=== PATIENT | female | born 1950 | race Caucasian/White ===

== ENCOUNTER 2021-06-30 10:30 | Emergency (ER) | payer MEDICARE, SELFPAY | END 2021-06-30 11:12 | disposition left against medical advice (07) | PROVIDERS: Emergency Provider Emergency Medicine ==

== ENCOUNTER 2022-09-09 12:18 | Emergency (ER) | payer MEDICARE, SELFPAY ==
[2022-09-09 12:35] VITALS: BP 156/89; PULSE 70; RESP 16; TEMP 36.9; O2SAT 98; BMI 16.1
--- NOTE | 2022-09-09 12:39 | DI.RAD.S_ITS ---
PROCEDURE: XR KNEE RT 3V INDICATIONS: Fall, knee injury TECHNIQUE: 4 views of the knee were acquired. COMPARISON: None. FINDINGS: Bones: Markedly comminuted fracture of the distal femur involving the diametaphyseal region likely extending to the articular surface with impaction and overriding and angulation and displacement. Soft tissues: Positive joint effusion. No suspicious soft tissue calcifications. IMPRESSION: Markedly comminuted fracture of the distal femur, likely extending to the articular surface as described above. Dictated by: Gallo Castillo M.D. on 09/09/2022 at 14:27 Approved by: Gallo Castillo M.D. on 09/09/2022 at 14:39
--- NOTE | 2022-09-09 12:43 | DI.CT.S_ITS ---
PROCEDURE: CT CERVICAL SPINE WO CON INDICATIONS: fall last night, head injury TECHNIQUE: Noncontrast 3 mm thick sections acquired from the skull base to the T4 level. Sagittal and coronal reformats were then constructed. For radiation dose reduction, the following was used: automated exposure control, adjustment of mA and/or kV according to patient size. COMPARISON: None. FINDINGS: Image quality: Excellent. Bones: No fractures or dislocations. Loss of normal cervical lordosis. Degenerative disc disease, [id number] at C3-C4, C4-C5 and C5-C6, causing moderate central canal stenosis. Moderate bilateral facet arthropathy, most pronounced at C5-C6 on the right. Visualized superior ribs are intact. Soft tissues: Prevertebral soft tissues are normal in thickness. No paravertebral hematomas. No apical pneumothoraces. IMPRESSION: 1. No cervical spine fractures. 2. Degenerative changes as described. Dictated by: Ze Mccollum M.D. on 09/09/2022 at 13:25 Approved by: Ze Mccollum M.D. on 09/09/2022 at 13:27
--- NOTE | 2022-09-09 12:43 | DI.CT.S_ITS ---
PROCEDURE: CT HEAD/BRAIN WO CON INDICATIONS: fall, head injury TECHNIQUE: Noncontrast 4.5 mm thick angled axial sections acquired from the foramen magnum to the vertex, with coronal and sagittal reformats. For radiation dose reduction, the following was used: automated exposure control, adjustment of mA and/or kV according to patient size. COMPARISON: None. FINDINGS: Image quality: Suboptimal due to motion artifacts. CSF spaces: Basal cisterns are patent. No extra-axial fluid collections. The ventricles are symmetric in size and shape. Brain: No intracranial bleeds or masses. There is cerebral volume loss for age, with resultant ventricular and sulcal prominence. There are periventricular and deep white matter chronic small vessel ischemic changes. There is intracranial internal carotid artery atherosclerosis. Skull and face: Calvarium and visualized facial bones appear intact, without suspicious lesions. Sinuses: Visualized sinuses and mastoids are clear. IMPRESSION: 1. No acute intracranial abnormalities. 2. Cerebral volume loss and chronic microvascular ischemic changes. Dictated by: Ze Mccollum M.D. on 09/09/2022 at 13:24 Approved by: Ze Mccollum M.D. on 09/09/2022 at 13:24
--- NOTE | 2022-09-09 13:01 | DI.CT.S_ITS ---
PROCEDURE: CT LE RT WO CON INDICATIONS: right leg injury TECHNIQUE: Noncontrast 3 mm axial sections acquired of the left lower extremity, with coronal and sagittal reformats. COMPARISON: None. FINDINGS: Image quality: Excellent. Bones: There is a comminuted, intra-articular fracture of the distal femoral metaphysis with impaction and displacement. Diffuse osteopenia. Soft tissues: Soft tissue edema. Small knee joint effusion. There is a large lipomatous mass in the distal lower leg posterior to the distal tibia measuring 4.1 x 3.5 x 11.3 cm demonstrating foci of calcification. There is a large amount of stool in rectum. IMPRESSION: 1. Comminuted intra-articular fracture of the distal femur. 2. 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 A differential diagnosis is liposarcoma. Recommend nonurgent MRI with and without contrast for further evaluation. Dictated by: Ze Mccollum M.D. on 09/09/2022 at 13:55 Approved by: Ze Mccollum M.D. on 09/09/2022 at 14:02
--- NOTE | 2022-09-09 14:08 | ED_ITS ---
HPI - Fall General Chief Complaint: Fall Stated Complaint: fell/rt knee inj Time Seen by Provider: 09/09/22 12:39 Source: patient and family Mode of arrival: Wheelchair History of Present Illness HPI Narrative: Patient here for right knee pain after ground level fall. at bedside. Patient was trying to answer the door at home. She had 1 ft on the carpet 1 ft on hard floor, her right foot gave out and she landed on her knee. Denies any other injuries. Patient has history of ALS. History of dementia. Denies hitting her head. No loss of consciousness. Related Data Allergies Allergy/AdvReac Type Severity Reaction Status Date / Time No Known Drug Allergies Allergy Verified 09/09/22 16:03 Review of Systems Review of Systems Narrative: GENERAL: negative chills, fatigue, malaise, fever, sweats. HEENT: negative sinus pain, ear pain, sore throat RESPIRATORY: negative dyspnea, cough CARDIOVASCULAR: negative chest pain, palpitations GASTROINTESTINAL: negative nausea, vomiting, abdominal pain : negative dysuria, frequency, hematuria MUSCULOSKELETAL: Positive bony pain SKIN: negative rash, skin lesions NEUROLOGIC: negative weakness, numbness ROS Unobtainable: All systems reviewed & are unremarkable except as noted in HPI and below Patient History Social History Smoking Status: Never smoker Smoking Status: Never smoker Substance Use Type: does not use Exam Narrative Exam Narrative: GENERAL: in no distress, not toxic not dyspneic HEAD: Normocephalic. Nontender face scalp and skull. EYES: Pupils equal round ENT: Mucous membranes moist. NECK: Trachea midline. No midline tenderness or step-off of the cervical spine CARDIOVASCULAR: Regular rate and rhythm RESPIRATORY: Clear to auscultation. Breath sounds equal bilaterally. No wheezes, rales, or rhonchi. GASTROINTESTINAL: Abdomen soft, non-tender EXTREMITIES: Right thigh to toes exposed. Foot is warm soft and pink with strong pedal pulse light touch intact to foot and toes. Strong pedal pulse with brisk cap refills. Nontender ankle. There is edema to the right knee. Very limited range of motion due to pain. Skin is intact. NEURO: AOx3 SKIN: Warm and dry PSYCH: Not anxious, is cooperative Initial Vital Signs Initial Vital Signs: Vital Signs Temperature 98.4 F 09/09/22 12:35 Pulse Rate 70 09/09/22 12:35 Respiratory Rate 16 09/09/22 12:35 Blood Pressure 156/89 H 09/09/22 12:35 Pulse Oximetry 98 09/09/22 12:35 Oxygen Delivery Method Room Air 09/09/22 12:35 Course Orders Ordered: Discontinued Medications Diazepam (Diazepam 10 Mg/2 Ml Syringe) 2 mg IV NOW ONE Stop: 09/09/22 16:15 Last Admin: 09/09/22 16:25 Dose: 2 mg Documented By: NAEEM Hydromorphone HCl (Hydromorphone 1 Mg Inj) 1 mg IV NOW ONE Stop: 09/09/22 14:13 Last Admin: 09/09/22 14:33 Dose: 1 mg Documented By: NEAEM Ondansetron HCl (Ondansetron 4 Mg/2 Ml Inj) 4 mg IV NOW ONE Stop: 09/09/22 14:13 Last Admin: 09/09/22 15:24 Dose: Not Given Documented By: NAEEM Vital Signs Vital signs: Vital Signs - 8 hr 09/09/22 12:35 Temperature 98.4 F Pulse Rate 70 Respiratory Rate 16 Blood Pressure 156/89 H Pulse Oximetry 98 Oxygen Delivery Method Room Air MDM - Fall Lab Data 09/09/22 13:55 09/09/22 13:55 Labs: Lab Results 09/09/22 09/09/22 Range/Units 13:55 13:55 WBC 13.3 H (4.5-11.0) X10^3/uL RBC 4.96 (4.0-5.2) X10^6/uL Hgb 15.9 (12.0-16.0) g/dL Hct 46.5 H (36-46) % MCV 93.7 (80-100) fL MCH 32.0 (26-34) PG MCHC 34.1 (30-36) % RDW 13.9 (11.6-14.8) % Plt Count 299 (150-400) X10^3/uL Neut % (Auto) 83.7 H (50-75) % Lymph % (Auto) 8.7 L (25-40) % [place] % (Auto) 7.0 (3-14) % Eos % (Auto) 0.1 L (2-4) % Baso % (Auto) 0.5 (0-2) % Neut # (Auto) 51112 H (9285-2118) /uL Lymph # (Auto) 1200 (2532-2695) /uL [place] # (Auto) 900 (0-900) /uL Eos # (Auto) 0 (0-450) /uL Baso # (Auto) 100 (0-100) /uL Sodium 133 L (137-145) mmol/L Potassium 4.1 (3.4-5.1) mmol/L Chloride 98 (98-107) mmol/L Carbon Dioxide 27 (22-32) mmol/L BUN 16 (7-17) mg/dL Creatinine 0.34 L (0.52-1.04) mg/dL Estimated GFR > 60 (>60) mL/min BUN/Creatinine Ratio 47.1 H (6-22) Glucose 107 (80-110) mg/dL Calcium 8.9 (8.4-10.2) mg/dL Total Bilirubin 1.2 (0.2-1.3) mg/dL AST 34 (14-36) IU/L ALT 26 (<35) IU/L Alkaline Phosphatase 82 (38-126) U/L Total Protein 7.0 (6.3-8.2) g/dL Albumin 4.2 (3.5-5.0) g/dL Globulin 2.8 (1.7-4.1) g/dL Albumin/Globulin Ratio 1.5 (1.0-2.8) Imaging Data Extremity x-ray #1: Radiologist's Impression: [address] [address] [address] Scan Report Signed Patient: Ruthie Landin MR#: [id number] : 1950 Acct:[id number] Age/Sex: 71 / F Date of Service: 09/09/22 Loc: ED Accession Number: [id number] ?? Procedure: CT LE RT wo con Ordering Provider: Hodan Leone PROCEDURE:? CT LE RT WO CON ? INDICATIONS:? right leg injury ? TECHNIQUE:? Noncontrast 3 mm axial sections acquired of the left lower extremity, with coronal and sagittal reformats. ? ? COMPARISON:? None. ? FINDINGS:? Image quality:? Excellent.? ? Bones:? There is a comminuted, intra-articular fracture of the distal femoral metaphysis with impaction and displacement. Diffuse osteopenia.? ? Soft tissues:? Soft tissue edema.? Small knee joint effusion.? There is a large lipomatous mass in the distal lower leg posterior to the distal tibia measuring 4.1 x 3.5 x 11.3 cm demonstrating foci of calcification.? There is a large amount of stool in rectum. ? IMPRESSION:? ? 1. Comminuted intra-articular fracture of the distal femur. ? 2. Large lipoma the distal lower leg with foci of calcification.? A differential diagnosis is liposarcoma.? Recommend nonurgent MRI with and without contrast for further evaluation. ? ? Dictated by: Ze Mccollum M.D. on 09/09/2022 at 13:55 ? ? Approved by: Ze Mccollum M.D. on 09/09/2022 at 14:02 ? Extremity x-ray #2: Radiologist's Impression: [place] [address] CT Scan Report Signed Patient: Ruthie Landin MR#: [id number] : 1950 Acct:[id number] Age/Sex: 71 / F Date of Service: 09/09/22 Loc: ED Accession Number: [id number] ?? Procedure: CT LE RT wo con Ordering Provider: Hodan Leone PROCEDURE:? CT LE RT WO CON ? INDICATIONS:? right leg injury ? TECHNIQUE:? Noncontrast 3 mm axial sections acquired of the left lower extremity, with coronal and sagittal reformats. ? ? COMPARISON:? None. ? FINDINGS:? Image quality:? Excellent.? ? Bones:? There is a comminuted, intra-articular fracture of the distal femoral metaphysis with impaction and displacement. Diffuse osteopenia.? ? Soft tissues:? Soft tissue edema.? Small knee joint effusion.? There is a large lipomatous mass in the distal lower leg posterior to the distal tibia measuring 4.1 x 3.5 x 11.3 cm demonstrating foci of calcification.? There is a large amount of stool in rectum. ? IMPRESSION:? ? 1. Comminuted intra-articular fracture of the distal femur. ? 2. Large lipoma the distal lower leg with foci of calcification.? A differential diagnosis is liposarcoma.? Recommend nonurgent MRI with and without contrast for further evaluation. ? ? Dictated by: Ze Mccollum M.D. on 09/09/2022 at 13:55 ? ? Approved by: Ze Mccollum M.D. on 09/09/2022 at 14:02 ? CT scan - head: Radiologist's Impression: [address] [address] [address] Scan Report Signed Patient: Ruthie Landin MR#: [id number] : 1950 Acct:[id number] Age/Sex: 71 / F Date of Service: 09/09/22 Loc: ED Accession Number: [id number] ?? Procedure: CT head/brain wo con Ordering Provider: Hodan Leone PROCEDURE:? CT HEAD/BRAIN WO CON ? INDICATIONS:? fall, head injury ? TECHNIQUE:? Noncontrast 4.5 mm thick angled axial sections acquired from the foramen magnum to the vertex, with coronal and sagittal reformats.? For radiation dose reduction, the following was used:? automated exposure control, adjustment of mA and/or kV according to patient size.? ? COMPARISON:? None. ? FINDINGS:? Image quality:? Suboptimal due to motion artifacts.? ? CSF spaces:? Basal cisterns are patent.? No extra-axial fluid collections.? The ventricles are symmetric in size and shape.? ? Brain:? No intracranial bleeds or masses.? There is cerebral volume loss for age, with resultant ventricular and sulcal prominence.? There are periventricular and deep white matter chronic small vessel ischemic changes.? There is intracranial internal carotid artery atherosclerosis.? ? Skull and face:? Calvarium and visualized facial bones appear intact, without suspicious lesions.? ? Sinuses:? Visualized sinuses and mastoids are clear.? ? IMPRESSION:? ? 1. No acute intracranial abnormalities. ? 2. Cerebral volume loss and chronic microvascular ischemic changes. ? ? ? Dictated by: Ze Mccollum M.D. on 09/09/2022 at 13:24 ? ? Approved by: Ze Mccollum M.D. on 09/09/2022 at 13:24 ? CT - cervical spine: Radiologist's Impression: [address] [address] [address] Scan Report Signed Patient: Ruthie Landin MR#: [id number] : 1950 Acct:[id number] Age/Sex: 71 / F Date of Service: 09/09/22 Loc: ED Accession Number: [id number] ?? Procedure: CT cervical spine wo con Ordering Provider: Hodan Leone PROCEDURE:? CT CERVICAL SPINE WO CON ? INDICATIONS:? fall last night, head injury ? TECHNIQUE:? Noncontrast 3 mm thick sections acquired from the skull base to the T4 level.? Sagittal and coronal reformats were then constructed.? For radiation dose reduction, the following was used:? automated exposure control, adjustment of mA and/or kV according to patient size.? ? COMPARISON:? None. ? FINDINGS:? Image quality:? Excellent.? ? Bones:? No fractures or dislocations.? Loss of normal cervical lordosis.? Degenerative disc disease, [id number] at C3-C4, C4-C5 and C5-C6, causing moderate central canal stenosis.? Moderate bilateral facet arthropathy, most pronounced at C5-C6 on the right.? Visualized superior ribs are intact.? ? Soft tissues:? Prevertebral soft tissues are normal in thickness.? No paravertebral hematomas.? No apical pneumothoraces.? ? ? IMPRESSION:? ? 1. No cervical spine fractures. 2. Degenerative changes as described. ? ? ? Dictated by: Ze Mccollum M.D. on 09/09/2022 at 13:25 ? ? Approved by: Ze Mccollum M.D. on 09/09/2022 at 13:27 ? MDM Narrative Medical decision making narrative: Patient here for right knee pain after ground level fall. at bedside. Patient was trying to answer the door at home. She had 1 ft on the carpet 1 ft on hard floor, her right foot gave out and she landed on her knee. Denies any other injuries. Patient has history of ALS. History of dementia. Denies hitting her head. No loss of consciousness. After history and exam Dilaudid Zofran x-ray right knee CT head CT cervical spine CT right knee MDM CC: Right knee pain Complicating co-morbidities: History of ALS Data collected from: Patient and Medical records reviewed: No recent visit for this complaint Differential considered: Includes but not limited to knee fracture knee dislocation knee sprain/strain Exam documented above, pertinent findings include: Edema swelling of the right knee Lab Test results independently reviewed as above. Pertinent findings: WBC 13.3 hemoglobin 15.9 hematocrit 46.5 Sodium 133 potassium 4.1 creatinine 0.34 GFR greater than 60 Imaging studies independently reviewed: CT head CT cervical spine no acute finding X-ray right knee comminuted fracture of the distal femur likely extending to the articular surface. CT right lower extremity without contrast comminuted intra-articular fracture of the distal femur Consultations: 2:[address] Garcia, on-call Orthopedic, he is unable to provide services for this type of injury. He will call back for possible options/transfer 3:00 p.m., spoke with [facility] Dr. Mitchell, he will accept patient Treatments: Dilaudid Re-evaluations: Updated patient and transfer needs, they do understand for higher level of care. Pain is controlled. Discussion: Appropriate for transfer higher level of care and surgery. Unable to provide services here for patient's injury. Pain is controlled. Knee placed in knee immobilizer for transfer. Not toxic at discharge. Diagnosis: Closed femur fracture Discharge Plan Departure Patient Disposition: [facility] Clinical Impression: Closed femur fracture
--- NOTE | 2022-09-09 14:12 | PC.NURSE ---
Deformity and swelling of R leg. Distal CMS intact. Pt denies pain.
[2022-09-09 14:20] LABS: Add Manual Diff / Slide Review NO; Basophils Absolute Auto 100 /uL (0-100); Basophils Percent Auto 0.5 % (0-2); Eosinophils Absolute Auto 0 /uL (0-450); Eosinophils Percent Auto 0.1 % (2-4); Hematocrit 46.5 % (36-46); Hemoglobin 15.9 g/dL (12.0-16.0); Lymphocytes Absolute Auto 1200 /uL (1100-4500); Lymphocytes Percent Auto 8.7 % (25-40); Mean Corpuscular HGB Conc 34.1 % (30-36); Mean Corpuscular Volume 93.7 fL (80-100); Monocytes Absolute Auto 900 /uL (0-900); Neutrophils Absolute Auto 11100 /uL (1500-7000); Neutrophils Percent Auto 83.7 % (50-75); Platelet Count 299 X10^3/uL (150-400); Red Blood Cell Count 4.96 X10^6/uL (4.0-5.2); Red Cell Distribution Width 13.9 % (11.6-14.8); White Blood Cell Count 13.3 X10^3/uL (4.5-11.0)
[2022-09-09 14:26] LABS: Alanine Aminotransferase 26 IU/L (<35); Albumin 4.2 g/dL (3.5-5.0); Albumin Globulin Ratio 1.5 (1.0-2.8); Alkaline Phosphatase 82 U/L (38-126); Aspartate Aminotransferase 34 IU/L (14-36); BUN Creatinine Ratio 47.1 (6-22); Bilirubin Total 1.2 mg/dL (0.2-1.3); Blood Urea Nitrogen 16 mg/dL (7-17); Calcium 8.9 mg/dL (8.4-10.2); Carbon Dioxide 27 mmol/L (22-32); Chloride 98 mmol/L (98-107); Estimated Glomerular Filt Rate > 60 mL/min (>60); Globulin 2.8 g/dL (1.7-4.1); Glucose 107 mg/dL (80-110); HEMOLYSIS 16 (0-50); Potassium 4.1 mmol/L (3.4-5.1); Sodium 133 mmol/L (137-145)
[2022-09-09] MEDS: HYDROMORPHONE 1 MG INJ IV (14:33)
[2022-09-09] MEDS: diazePAM 10 MG/2 ML SYRINGE 2 MG IV (16:25)
[2022-09-09 16:41] VITALS: BP 155/71; PULSE 56; RESP 20; TEMP 37.2; O2SAT 95
== END 2022-09-09 16:35 | disposition short-term general hospital (02) ==
PROVIDERS: Emergency Provider Emergency Medicine
DX: S72.401A Unspecified fracture of lower end of right femur, initial encounter for closed fracture (principal); S09.90XA Unspecified injury of head, initial encounter; W18.30XA Fall on same level, unspecified, initial encounter
CPT/HCPCS: 36415; 70450; 72125; 73562; 73700; 80053; 85025; 96374; 96375; 99284; J1170; J3360

== ENCOUNTER 2022-10-24 15:48 | Emergency (ER) | payer MEDICARE, SELFPAY ==
[2022-10-24 15:49] VITALS: BP 134/82; PULSE 76; RESP 15; TEMP 36.6; O2SAT 97; BMI 15.3
[2022-10-24 15:54] VITALS: PULSE 64; O2SAT 97
[2022-10-24 15:55] VITALS: BP 134/82; PULSE 62; O2SAT 97
[2022-10-24 16:00] VITALS: PULSE 59; O2SAT 97
[2022-10-24] MEDS: ONDANSETRON 4 MG/2 ML INJ IV (16:04)
[2022-10-24] MEDS: SODIUM CHLORIDE 0.9% 1,000 ML 1000 ML IV (16:04)
--- NOTE | 2022-10-24 16:17 | ED.NAVMDI ---
HPI - Nausea/Vomiting/Diarrhea General Chief complaint: Nausea/Vomiting/Diarrhea Stated complaint: NEEDS TO BE HYDRATED NOT KEEPING THINGS DOWN -24HR Time Seen by Provider: 10/24/22 16:00 Source: patient Mode of arrival: Ambulatory History of Present Illness HPI Narrative: 72-year-old female who is here with her for evaluation of vomiting for the past 24-48 hours. She did have some loose stool this morning but then has been the only time. She denies any abdominal pain. No fevers. No chest pain or shortness of breath. They did have Zofran at home however this was not effective in helping her keep fluids down. Related Data Previous Rx's Medication Instructions Recorded ondansetron 4 mg disintegrating 4 mg PO Q6H PRN nausea and 10/24/22 tablet vomiting #14 tabs Allergies Allergy/AdvReac Type Severity Reaction Status Date / Time No Known Drug Allergies Allergy Verified 10/24/22 15:56 Review of Systems Constitutional Constitutional: Reports system reviewed and no additional complaints, except as documented Cardiovascular Cardiovascular: Reports system reviewed and no additional complaints, except as documented Respiratory Respiratory: Reports system reviewed and no additional complaints, except as documented Gastrointestinal Gastrointestinal: Reports system reviewed and no additional complaints, except as documented Integumentary/Breasts Skin/Breast: Reports system reviewed and no additional complaints, except as documented Neurologic Neurologic: Reports system reviewed and no additional complaints, except as documented Hematologic/Lymphatic On Anticoagulants: No Patient History Social History Smoking Status: Never smoker Smoking Status: Never smoker alcohol intake frequency: holidays/special occasions only Substance Use Type: does not use Exam Initial Vital Signs Initial Vital Signs: Vital Signs Temperature 97.9 F 10/24/22 15:49 Pulse Rate 76 10/24/22 15:49 Respiratory Rate 15 10/24/22 15:49 Blood Pressure 134/82 10/24/22 15:49 Pulse Oximetry 97 10/24/22 15:49 Oxygen Delivery Method Room Air 10/24/22 15:49 HENCO Head: normal to inspection and normocephalic Resp Effort & Inspection: normal respiratory effort Auscultation: clear to auscultation bilaterally Cardio Rate: regular rate Rhythm: regular rhythm GI Inspection: normal to inspection and non-distended Palpation: soft and No tender Skin General: no rashes or lesions noted Neuro General: patient alert and moves all extremities Course Orders Ordered: ED Orders 10/24/22 16:10 CMP [Comprehensive Metabolic Panel] Stat Complete Blood Count AUTO DIFF Stat Ondansetron HCl (Ondansetron 4 Mg Odt) 4 mg SL NOW PRN PRN Reason: Nausea And Vomiting Ondansetron HCl (Ondansetron 4 Mg/2 Ml Inj) 4 mg IV NOW PRN PRN Reason: Nausea And Vomiting Last Admin: 10/24/22 16:04 Dose: 4 mg Documented By: RAEANN Discontinued Medications Sodium Chloride (Normal Saline 0.9%) 1,000 mls @ 1,000 mls/hr IV BOLUS ONE Stop: 10/24/22 17:00 Last Admin: 10/24/22 16:04 Dose: 1,000 mls/hr Documented By: RAEANN Vital Signs Vital signs: Vital Signs - 8 hr 10/24/22 15:49 Temperature 97.9 F Pulse Rate 76 Respiratory Rate 15 Blood Pressure 134/82 Pulse Oximetry 97 Oxygen Delivery Method Room Air MDM - Nausea/Vomiting/Diarrhea Lab Data 10/24/22 16:10 10/24/22 16:10 Labs: Lab Results 10/24/22 10/24/22 Range/Units 16:10 16:10 WBC 13.3 H (4.5-11.0) X10^3/uL RBC 4.75 (4.0-5.2) X10^6/uL Hgb 15.4 (12.0-16.0) g/dL Hct 44.7 (36-46) % MCV 94.2 (80-100) fL MCH 32.5 (26-34) PG MCHC 34.6 (30-36) % RDW 15.6 H (11.6-14.8) % Plt Count 254 (150-400) X10^3/uL Neut % (Auto) 88.9 H (50-75) % Lymph % (Auto) 7.0 L (25-40) % [place] % (Auto) 3.5 (3-14) % Eos % (Auto) 0.0 L (2-4) % Baso % (Auto) 0.6 (0-2) % Neut # (Auto) 00834 H (5141-5695) /uL Lymph # (Auto) 900 L (5269-0372) /uL [place] # (Auto) 500 (0-900) /uL Eos # (Auto) 0 (0-450) /uL Baso # (Auto) 100 (0-100) /uL Sodium 135 L (137-145) mmol/L Potassium 3.5 (3.4-5.1) mmol/L Chloride 96 L (98-107) mmol/L Carbon Dioxide 29 (22-32) mmol/L BUN 12 (7-17) mg/dL Creatinine 0.34 L (0.52-1.04) mg/dL Estimated GFR > 60 (>60) mL/min BUN/Creatinine Ratio 35.3 H (6-22) Glucose 119 H (80-110) mg/dL Calcium 9.6 (8.4-10.2) mg/dL Total Bilirubin 1.3 (0.2-1.3) mg/dL AST 27 (14-36) IU/L ALT 18 (<35) IU/L Alkaline Phosphatase 120 (38-126) U/L Total Protein 7.1 (6.3-8.2) g/dL Albumin 4.3 (3.5-5.0) g/dL Globulin 2.8 (1.7-4.1) g/dL Albumin/Globulin Ratio 1.5 (1.0-2.8) MDM Narrative Medical decision making narrative: Patient is currently not feeling nauseous. No abdominal pain. Has been vomiting for the past 24-48 hours. No fevers. They do have Zofran at home but the patient has not been taking it because she does not like the way that it tastes. Labs today are relatively unremarkable. Has a leukocytosis but unchanged from 1 month ago. No indication for radiologic studies. No abdominal pain. Patient is tolerating oral intake of her IV fluids and Zofran. Plan was to discharge home. Instructions to take the Zofran as needed to help with the vomiting. They were given return precautions. Both patient and expressed understanding and agreement. Discharge Plan Departure Patient Disposition: Home Clinical Impression: Nausea and vomiting Instructions: Nausea and Vomiting-Adult Activity Restrictions/Additional Instructions: I do recommend that you try to increase her fluid intake by drinking small amounts more frequently. I also recommend a bland diet for the next couple days. Use the nausea medication as needed. Return to the emergency department for new or worsening symptoms. Prescriptions: New ondansetron 4 mg tablet,disintegrating 4 mg PO Q6H PRN (Reason: nausea and vomiting) Qty: 14 0RF Stand Alone Forms: Patient Portal/API
[2022-10-24 16:18] LABS: Add Manual Diff / Slide Review NO; Basophils Absolute Auto 100 /uL (0-100); Basophils Percent Auto 0.6 % (0-2); Eosinophils Absolute Auto 0 /uL (0-450); Hematocrit 44.7 % (36-46); Hemoglobin 15.4 g/dL (12.0-16.0); Lymphocytes Absolute Auto 900 /uL (1100-4500); Mean Corpuscular HGB Conc 34.6 % (30-36); Mean Corpuscular Hemoglobin 32.5 PG (26-34); Mean Corpuscular Volume 94.2 fL (80-100); Monocytes Absolute Auto 500 /uL (0-900); Monocytes Percent Auto 3.5 % (3-14); Neutrophils Absolute Auto 11800 /uL (1500-7000); Neutrophils Percent Auto 88.9 % (50-75); Platelet Count 254 X10^3/uL (150-400); Red Blood Cell Count 4.75 X10^6/uL (4.0-5.2); Red Cell Distribution Width 15.6 % (11.6-14.8); White Blood Cell Count 13.3 X10^3/uL (4.5-11.0)
[2022-10-24 16:31] LABS: Alanine Aminotransferase 18 IU/L (<35); Albumin 4.3 g/dL (3.5-5.0); Albumin Globulin Ratio 1.5 (1.0-2.8); Alkaline Phosphatase 120 U/L (38-126); Aspartate Aminotransferase 27 IU/L (14-36); BUN Creatinine Ratio 35.3 (6-22); Bilirubin Total 1.3 mg/dL (0.2-1.3); Blood Urea Nitrogen 12 mg/dL (7-17); Calcium 9.6 mg/dL (8.4-10.2); Carbon Dioxide 29 mmol/L (22-32); Chloride 96 mmol/L (98-107); Estimated Glomerular Filt Rate > 60 mL/min (>60); Globulin 2.8 g/dL (1.7-4.1); Glucose 119 mg/dL (80-110); HEMOLYSIS < 15 (0-50); Potassium 3.5 mmol/L (3.4-5.1); Sodium 135 mmol/L (137-145); Total Protein 7.1 g/dL (6.3-8.2)
[2022-10-24 17:03] VITALS: BP 136/73; PULSE 62; O2SAT 100
[2022-10-24 17:15] VITALS: BP 136/73; PULSE 63; O2SAT 99
== END 2022-10-24 17:19 | disposition home or self-care (01) ==
PROVIDERS: Emergency Provider Emergency Medicine
DX: R11.2 Nausea with vomiting, unspecified (principal)
CPT/HCPCS: 36415; 80053; 85025; 96361; 96374; 99284; J2405